=== PATIENT | female | born 1970 | race Caucasian/White ===

== ENCOUNTER 2017-08-10 02:35 | Emergency (ER) | payer OTHER ==
[~2017-08-10] VITALS: Ht 165.1 cm; Wt 84.4 kg
[~2017-08-10 02:35] MED LIST: AMOX1TAB42 PO
[2017-08-10 02:42] VITALS: TEMP 36.6; Ht 165.1 cm; Wt 84.4 kg
[2017-08-10] MEDS ORDERED: SODIUM CHLORIDE 0.9% 500ML 500 ML IV STA (03:02)
[2017-08-10] MEDS ORDERED: SODIUM CHLORIDE 0.9% 1000ML 1,000 ML IV STA (03:02)
[2017-08-10] MEDS ORDERED: ONDANSETRON INJ 2 MG/ML 2 ML VIAL IV STA (03:02)
[2017-08-10] MEDS ORDERED: hydrOXYzine HCL 25 MG TAB PO STA (03:15)
[2017-08-10 03:34] LABS: BASO % 0.1 %; BASO ABS # 0.01 K/uL (0-0.2); COMPLETE YES; EOS % 0.1 %; HEMATOCRIT 38.9 % (37-47); IG% 1.1 %; LYMPH % 13.9 %; LYMPH ABS # 1.54 K/uL (1.2-3.4); MEAN CELL VOLUME 90.3 fL (80-100); MEAN CORPUSCULAR HEMOGLOBIN 30.2 pg (25-34); MEAN CORPUSCULAR HGB CONC 33.4 g/dl (32-36); MEAN PLATELET VOLUME 9.4 fL (7.4-10.4); MONO % 6.6 %; NEUT % 78.2 %; PLATELET COUNT 261 K/uL (130-400); RED BLOOD COUNT 4.31 M/uL (4.2-5.4); WHITE BLOOD COUNT 11.09 K/uL (4.8-10.8)
[2017-08-10 03:53] LABS: ALT/SGPT 39 U/L (12-78); AST/SGOT 18 U/L (15-37); BLOOD UREA NITROGEN 14 mg/dl (7-18); CALCIUM 8.8 mg/dl (8.5-10.1); CARBON DIOXIDE 27 mmol/L (21-32); CHLORIDE 104 mmol/L (98-107); CREATININE 0.65 mg/dl (0.60-1.20); GLUCOSE 127 mg/dl (70-99); MAGNESIUM 2.2 mg/dl (1.8-2.4); POTASSIUM 3.1 mmol/L (3.5-5.1); SODIUM 140 mmol/L (136-145)
[2017-08-10 03:56] LABS: ALKALINE PHOSPHATASE 55 U/L (45-117)
--- NOTE | 2017-08-10 03:56 | EMERGENCY ROOM VISIT NOTE ---
History Report prepared by Hu: Dillan Vick Under the Supervision of: Dr. Karen Spencer M.D. First contact with patient: 02:51 Chief Complaint: OTHER COMPLAINT Stated Complaint: SWELLING,WATER RETENTION,VOMITING History of Present Illness The patient is a 47 year old female who presents to the Emergency Room with complaints of constant swelling all over starting yesterday, and she feels like she is retaining water. She states that she has additionally been vomiting, having diarrhea, and her heart has been racing. She denies any fever. The patient states that she has recently been diagnosed with RA and Crohn's, and she had an allergic reaction to Plaquenil, and she had blisters all over. She states that she has DRESS syndrome. She states that she was then put on prednisone at the end of June. She additionally states that two days ago she was at her GI doctor, and they said that she might have C Diff. Stool studies are pending. She also has a left kidney stone. Source of History: patient Onset: yesterday Position: other (global) Quality: other (swelling) Timing: constant Associated Symptoms: + vomiting, + diarrhea, No fevers Review of Systems See HPI for pertinent positives & negatives. A total of 10 systems reviewed and were otherwise negative. Past Medical & Surgical Medical Problems: (1) Crohn disease (2) Rheumatoid arthritis Social History Smoking Status: Never Smoker Marital Status: Housing Status: lives with family Occupation Status: employed Current/Historical Medications Scheduled Amoxicillin & Pot Clavulanate (Amoxicillin/Clavulanate P), 1 TAB PO BID Cranberry (Vaccinium Macrocarp (Cranberry Soft Chews), 6,000 MG PO DAILY Estrogens, Conjugated (Premarin), 0.625 MG PO DAILY Omeprazole (Prilosec), 40 MG PO DAILY Ondasetron Odt (Zofran Odt), 4 MG SL Q6H Prednisone (Prednisone), MG PO UD Venlafaxine Hcl (Venlafaxine Extended Rel), 75 MG PO DAILY Allergies Coded Allergies: Hydroxychloroquine (Verified Allergy, Severe, dress syndrome, 08/10/17) Nitrofurantoin (Verified Allergy, Severe, HIVES, 08/10/17) Sulfa Antibiotics (Verified Allergy, Severe, HIVES, 08/10/17) Sulfamethoxazole w/Trimethoprim (Verified Allergy, Severe, HIVES, 08/10/17) Uncoded Allergies: TREE NUT (Allergy, Severe, HIVES, 08/10/17) Physical Exam Vital Signs Date Time Temp Pulse Resp B/P (MAP) Pulse Ox O2 Delivery O2 Flow Rate FiO2 08/10/17 06:57 77 17 117/73 98 08/10/17 06:19 62 18 135/77 98 Room Air 08/10/17 05:19 54 18 126/75 95 Room Air 08/10/17 04:03 58 08/10/17 02:42 36.6 78 20 160/90 98 Room Air Physical Exam Vital signs reviewed. General: Well-appearing female, in no significant distress. Somewhat cushingoid in appearance. HEENT: No scleral icterus, PERRLA, neck supple. Atraumatic. Cardiovascular: Regular rate and rhythm, no extra sounds. Pulmonary: Clear to auscultation bilaterally, normal work of breathing. Abdomen: Mild diffuse abdominal tenderness. No rebound guarding or tympany. Soft , nondistended, positive bowel sounds. Musculoskeletal: 1+ edema to the bilateral lower extremities. Atraumatic Neurologic: Patient awake alert and oriented x 3, full strength in all 4 extremities. Cranial nerves 2 through 12 grossly intact. Skin: Warm, dry, no rash Medical Decision & Procedures Laboratory Results 08/10/17 03:10 Red Blood Count 4.31, Mean Corpuscular Volume 90.3, Mean Corpuscular Hemoglobin 30.2, Mean Corpuscular Hemoglobin Concent 33.4, Mean Platelet Volume 9.4, Neutrophils (%) (Auto) 78.2, Lymphocytes (%) (Auto) 13.9, Monocytes (%) (Auto) 6.6, Eosinophils (%) (Auto) 0.1, Basophils (%) (Auto) 0.1, Neutrophils # (Auto) 8.68, Lymphocytes # (Auto) 1.54, Monocytes # (Auto) 0.73, Eosinophils # (Auto) 0.01, Basophils # (Auto) 0.01 08/10/17 03:10 Test 08/10/17 03:10 White Blood Count 11.09 K/uL (4.8-10.8) Red Blood Count 4.31 M/uL (4.2-5.4) Hemoglobin 13.0 g/dL (12.0-16.0) Hematocrit 38.9 % (37-47) Mean Corpuscular Volume 90.3 fL (80-100) Mean Corpuscular Hemoglobin 30.2 pg (25-34) Mean Corpuscular Hemoglobin Concent 33.4 g/dl (32-36) Platelet Count 261 K/uL (130-400) Mean Platelet Volume 9.4 fL (7.4-10.4) Neutrophils (%) (Auto) 78.2 % Lymphocytes (%) (Auto) 13.9 % Monocytes (%) (Auto) 6.6 % Eosinophils (%) (Auto) 0.1 % Basophils (%) (Auto) 0.1 % Neutrophils # (Auto) 8.68 K/uL (1.4-6.5) Lymphocytes # (Auto) 1.54 K/uL (1.2-3.4) Monocytes # (Auto) 0.73 K/uL (0.11-0.59) Eosinophils # (Auto) 0.01 K/uL (0-0.5) Basophils # (Auto) 0.01 K/uL (0-0.2) RDW Standard Deviation 48.0 fL (36.4-46.3) RDW Coefficient of Variation 14.5 % (11.5-14.5) Immature Granulocyte % (Auto) 1.1 % Immature Granulocyte # (Auto) 0.12 K/uL (0.00-0.02) Anion Gap 9.0 mmol/L (3-11) Est Creatinine Clear Calc Drug Dose 113.6 ml/min Estimated GFR () 121.7 Estimated GFR (Non- 105.0 BUN/Creatinine Ratio 21.0 (10-20) Calcium Level 8.8 mg/dl (8.5-10.1) Magnesium Level 2.2 mg/dl (1.8-2.4) Total Bilirubin 0.2 mg/dl (0.2-1) Direct Bilirubin < 0.1 mg/dl (0-0.2) Aspartate Amino Transf (AST/SGOT) 18 U/L (15-37) Alanine Aminotransferase (ALT/SGPT) 39 U/L (12-78) Alkaline Phosphatase 55 U/L (45-117) Total Protein 6.1 gm/dl (6.4-8.2) Albumin 3.0 gm/dl (3.4-5.0) Lipase 714 U/L (73-393) Laboratory results per my review. Medications Administered Medications (Trade) Dose Ordered Sig/Chastity Route Start Time Stop Time Status Last Admin Dose Admin Ondansetron HCl (Zofran Inj) 4 mg NOW STAT IV 08/10/17 03:02 08/10/17 03:04 DC 08/10/17 03:36 4 MG Sodium Chloride 500 ml @ 999 mls/hr Q31M STAT IV 08/10/17 03:02 08/10/17 03:32 DC 08/10/17 03:37 999 MLS/HR Sodium Chloride 1,000 ml @ 200 mls/hr Q5H STAT IV 08/10/17 03:02 08/10/17 08:01 08/10/17 03:37 200 MLS/HR Hydroxyzine HCl (Vistaril Tab) 25 mg NOW STAT PO 08/10/17 03:15 08/10/17 03:28 DC 08/10/17 03:36 25 MG Potassium Chloride (Kcl 10 Meq / Wtr) 20 meq NOW STAT IV 08/10/17 04:05 08/10/17 04:06 DC 08/10/17 04:13 20 MEQ ED Course 0251: Past medical records reviewed. The patient was evaluated in room B6. A complete history and physical examination was performed. 0302: Sodium Chloride 1000 ml @ 200 mls/hr IV, Sodium Chloride 500 ml @ 999 mls/ hr IV, Zofran Inj 4mg IV 0315: Vistaril Tab 25mg PO 0405: Potassium Chloride 20meq IV 0640: Upon reevaluation, the patient appeared to have improvement of her symptoms. I discussed findings with her. She verbalized agreement of the treatment plan. She was discharged home. Medical Decision Differential diagnosis: Etiologies such as gastroenteritis, food borne illness, infections, appendicitis , diverticulitis, inflammatory bowel disease, obstruction, GI bleed, biliary pathology, as well as others were entertained. This patient was evaluated and appeared to be in no significant distress. IV access was obtained and laboratory work was drawn. The patient seemed to be somewhat anxious and tearful. She reiterates that there are multiple stressors going on currently including her multiple health problems. The patient was given Vistaril 25 mg orally. She was hydrated with normal saline solution. Laboratory work reveals a mild hypokalemia at 3.1. She was given 20 mEq of IV potassium. Patient was hydrated with IV normal saline solution. She urinated multiple times during her stay. She was not able to provide a stool specimen. The patient was feeling improved after IV Zofran and the above interventions. She was advised of the findings. She is not able to provide a stool specimen here in the ER. She'll follow-up with her public relations manager upon return home. She will return to the ER for worsening of symptoms or any medical concerns. Medication Reconcilliation Current Medication List: was personally reviewed by me Blood Pressure Screening Patient's blood pressure: Elevated blood pressure Blood pressure disposition: Elevated BP felt to be situational Impression Primary Impression: Hypokalemia Additional Impression: Vomiting Scribe Attestation The scribe's documentation has been prepared under my direction and personally reviewed by me in its entirety. I confirm that the note above accurately reflects all work, treatment, procedures, and medical decision making performed by me. Departure Information Dispostion Home / Self-Care Prescriptions Ondasetron Odt (ZOFRAN ODT) 4 Mg Tab 4 MG SL Q6H for Nausea, #15 TAB Prov: Karen Spencer M.D. 08/10/17 Referrals No Doctor, Assigned (PCP) Forms HOME CARE DOCUMENTATION FORM, IMPORTANT VISIT INFORMATION, WORK / SCHOOL INSTRUCTIONS Patient Instructions My [facility] Additional Instructions Diagnosis: Hypokalemia Please resume potassium 10 MEq twice daily and have your potassium rechecked next week. Zofran 4 mg ODT every 6 hours as needed for nausea. Drink plenty of clear fluids. Follow up with your doctor this week for reevaluation. Return to the ED for worsening of symptoms or any medical concerns. Problem Qualifiers
[2017-08-10] MEDS ORDERED: POTASSIUM CHLORIDE 10 MEQ / 100ML WTR IV STA (04:05)
[2017-08-10] MEDS ORDERED: PRED10TA PO (04:26)
[2017-08-10] MEDS ORDERED: OMEP40CA41 PO (04:28)
[2017-08-10] MEDS ORDERED: PRM625 PO (04:30)
[2017-08-10] MEDS ORDERED: VENL75CA73 PO (04:30)
[2017-08-10] MEDS ORDERED: CRAN1CHW PO (04:34)
[2017-08-10] MEDS ORDERED: ONDA4TAB10 SL (06:49)
[2017-08-10 06:57] VITALS: BP 117/73; PULSE 77; O2SAT 98
== END 2017-08-10 06:59 | disposition home or self-care (01) ==
LOC: C.EDB 02:37
DX: R11.10 Vomiting, unspecified (principal); E87.6 Hypokalemia; M06.9 Rheumatoid arthritis, unspecified; K50.90 Crohn's disease, unspecified, without complications; N20.0 Calculus of kidney; Z79.899 Other long term (current) drug therapy